=== PATIENT | female | born 1960 | race Two or more races ===

== ENCOUNTER 2018-05-04 13:49 | Emergency (ER) | payer MEDICAID ==
[~2018-05-04] VITALS: Ht 157.5 cm; Wt 65.8 kg
[2018-05-04 13:51] VITALS: BP 120/69
--- NOTE | 2018-05-04 14:02 | Emergency Room Report ---
History of Present Illness General Chief Complaint: Headache Source: Patient Present Illness HPI 57-year-old female with a history of brain tumors dx'd 2 months ago, non on chemo/XRT, gets care at [facility], [facility] from a [facility] for bitemporal headache for the past 5 hours with associated photophobia, denies fevers, vomiting, seizures, nausea, loss of appetite, and vague abdominal cramping. She says she takes meds but didn't bring them with her. She reports she gets these headaches ever since her diagnosis and has to get pain meds to make it better. Allergies: Coded Allergies: No Known Allergies (Unverified , 05/04/18) Patient History Past Medical History: see triage record Reviewed Nursing Documentation: PMH: Agreed; PSxH: Agreed Review of Systems All Other Systems: negative except mentioned in HPI Physical Exam Sp02 EP Interpretation: reviewed, normal General Appearance: no apparent distress, alert, non-toxic Head: normocephalic Eyes: bilateral eye normal inspection, bilateral eye PERRL, bilateral eye EOMI , bilateral eye other - partial L ptosis ENT: normal ENT inspection, hearing grossly normal, normal pharynx, no angioedema, normal voice, moist mucus membranes Neck: normal inspection, full range of motion, supple, no meningismus, supple/ symm/no masses Respiratory: chest non-tender, lungs clear, normal breath sounds, chest symmetrical, palpation of chest normal Cardiovascular #1: normal peripheral pulses, regular rate, rhythm Cardiovascular #2: 2+ radial (R), 2+ radial (L) Gastrointestinal: normal inspection, non tender, soft, no mass, no guarding, no rebound Rectal: deferred Genitourinary: normal inspection, no CVA tenderness Musculoskeletal: back normal, gait/station normal, normal range of motion, non- tender, no calf tenderness Neurologic: alert, responsive, pipe testing technician III-XII nml as tested, motor strength/tone normal, sensory intact, speech normal Psychiatric: judgement/insight normal, memory normal, mood/affect normal Skin: normal color, no rash, warm/dry, normal turgor Lymphatic: no adenopathy Medical Decision Making Diagnostic Impression: Primary Impression: Headache ER Course Patient with history of headache, brain tumors, as well as vague abdominal pain , abdominal exam unremarkable, neuro exam also generally unremarkable other than mild left partial ptosis. Will obtain basic labs, urinalysis, given IV Reglan, IV Benadryl, IV normal saline, obtaining head CT, and also try to obtain records from [facility], patient currently well-appearing, likely breakthrough headache, nausea, possibly hunger pains as her abdominal pain is very vague, and she does have a loss of appetite. Patient feels some improvement with above interventions, but still has headache , no abdominal pain, improved nausea, so will try to give a meal, also more headache meds with tylenol #3, iv zofran, and will dc back to fpc. Still awaiting medical records from [facility]. 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 Correlate with clinical history. Otherwise, negative for acute intracranial bleed or mass effect or other acute abnormality Reevaluation Time: 15:19 Status: improved Condition: Stable Scripts No Active Prescriptions or Reported Meds BAKARI BROWN M.D May 04, 2018 14:02
[2018-05-04] MEDS ORDERED: Metoclopramide 10mg/2ml Inj IVP ONE (14:15)
[2018-05-04] MEDS ORDERED: DiphenhydrAMINE 50mg/ml Inj IVP ONE (14:15)
[2018-05-04 14:31] LABS: BASOPHILS % (AUTO) 0.5 % (0.0-2.0); EOSINOPHILS % (AUTO) 1.9 % (0.0-3.0); HEMATOCRIT 39.3 % (37.0-47.0); HEMOGLOBIN 13.5 G/DL (12.0-16.0); LYMPHOCYTES % (AUTO) 24.9 % (20.0-45.0); MEAN CORPUSCULAR VOLUME 89 FL (80-99); MONOCYTES % (AUTO) 5.8 % (1.0-10.0); NEUTROPHILS % (AUTO) 66.9 % (45.0-75.0); PLATELET COUNT 243 K/UL (150-450); RED BLOOD COUNT 4.41 M/UL (4.20-5.40); RED CELL DISTRIBUTION WIDTH 10.3 % (11.6-14.8); WHITE BLOOD COUNT 5.9 K/UL (4.8-10.8)
[2018-05-04 14:35] LABS: ANION GAP 12 mmol/L (5-15); BLOOD UREA NITROGEN 13 mg/dL (7-18); CALCIUM 9.5 MG/DL (8.5-10.1); CARBON DIOXIDE 25 MMOL/L (21-32); CHLORIDE 105 MMOL/L (98-107); SODIUM 141 MMOL/L (136-145)
[2018-05-04 14:39] LABS: ALANINE AMINOTRANSFERASE 22 U/L (12-78); ALBUMIN/GLOBULIN RATIO 0.8 (1.0-2.7); ALKALINE PHOSPHATASE 70 U/L (46-116); ASPARTATE AMINO TRANSFERASE 20 U/L (15-37); BILIRUBIN,TOTAL 0.4 MG/DL (0.2-1.0)
[2018-05-04 14:52] LABS: APPEARANCE,URINE CLEAR; BILIRUBIN, URINE NEGATIVE (NEGATIVE); COLOR,URINE PALE YELLOW; GLUCOSE, URINE (UA) NEGATIVE (NEGATIVE); KETONES,URINE NEGATIVE (NEGATIVE); LEUKOCYTE ESTERASE ,URINE 1+ (NEGATIVE); NITRITE,URINE NEGATIVE (NEGATIVE); PH,URINE 6 (4.5-8.0); PROTEIN,URINE NEGATIVE (NEGATIVE); UROBILINOGEN,URINE NORMAL MG/DL (0.0-1.0)
--- NOTE | 2018-05-04 15:02 | Diagnostic Imaging Report ---
Indications: Bitemporal headache for past 5 hours with photophobia Technique: Spiral acquisitions obtained through the brain. Angled axial and coronal 5 x 5 mm slices were reconstructed. Total dose length product 1337.22 mGycm. CTDI vol(s) 70.38 mGy. Dose reduction achieved using automated exposure control Comparison: None. Findings: Round hyperattenuating focus at the roof of the third ventricle could represent a small colloid cyst. No associated hydrocephalus. No acute intracranial hemorrhage nor edema. No mass effect nor midline shift. Normal russell-white differentiation. There is slight focal effacement of the posterolateral right aspect of the fourth ventricle, without definite associated mass or edema. Otherwise, no acute hemorrhage or edema, mass effect, nor midline shift. Normal-sized ventricles and extra-axial CSF spaces. Normal russell-white differentiation. Visualized orbits and sinuses are unremarkable. The mastoids are underpneumatized bilaterally. 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 Correlate with clinical history. Otherwise, negative for acute intracranial bleed or mass effect or other acute abnormality The CT scanner at [facility] is accredited by the [employer] and the scans are performed using protocols designed to limit radiation exposure to as low as reasonably achievable to attain images of sufficient resolution adequate for diagnostic evaluation.
[2018-05-04] MEDS ORDERED: Tylenol #3 tab (300mg/30mg) ORAL ONE (15:30)
[2018-05-04 16:04] VITALS: BP 109/57
[2018-05-04] MEDS ORDERED: ACETAMINOPHEN-1 EAC1 ORAL (16:06)
[2018-05-04] MEDS ORDERED: ZOFRAN4 M3 ORAL (16:06)
[2018-05-04] MEDS ORDERED: REGLAN10 MG ORAL (16:07)
[2018-05-04 18:12] VITALS: BP 115/60
== END 2018-05-04 18:15 | disposition home or self-care (01) ==
LOC: EDBD 13:49 → EMR 14:18
DX: R51 Headache (principal); Z59.0 Homelessness; H02.402 Unspecified ptosis of left eyelid; Q04.6 Congenital cerebral cysts
CPT/HCPCS: 36415; 70450; 80053; 81003; 83690; 85025; 85610; 85730; 96361; 96374; 96375; 99284; J1200; J2405; J2765

== ENCOUNTER 2018-08-27 14:12 | Emergency (ER) | payer MEDICAID ==
[~2018-08-27] VITALS: Ht 154.9 cm; Wt 49.9 kg
[~2018-08-27 14:12] MED LIST: ACETAMINOPHEN-1 EAC1 ORAL; REGLAN10 MG ORAL; ZOFRAN4 M3 ORAL
--- NOTE | 2018-08-27 14:14 | NUR ---
ED Nurse Note: PT BROUGHT IN BY [facility] FROM HOME. PER EMS, PT HAD A WITNESSED SYNCOPAL EPISODE X 30 MINUTES AGO. PER STANDBYERS, NO HEAD TRAUMA. PT AOX3 - NOT ORIENTED TO TIME. PT C/O HEADACHE, 06/28. PT CALM AND COOPERATIVE AND ANSWERING QUESTIONS APPROPRIATELY. DR HERNANDEZ AT BEDSIDE FOR EVALUATION.
[2018-08-27 14:15] VITALS: BP 121/72
[2018-08-27] MEDS ORDERED: NKM (14:19)
--- NOTE | 2018-08-27 14:21 | Emergency Room Report ---
History of Present Illness General Chief Complaint: Syncope Source: Patient, EMS Present Illness HPI Patient is a 58-year-old female brought in by EMS after syncopal episode. Syncopal episode lasted less than 1 minute. Patient had reportedly been having some increased headache. Patient a prior history of brain tumor as well as seizure disorder but did not have any witnessed seizure episode. Patient was assisted to the floor by bystanders and had no head trauma. She reports having increased headache as well as vomiting. Patient reports having prior history of myocardial infarction x2 in the past. She reports having some continued headache. She states she has constant headaches and had last had imaging done approximate 1 year ago. Patient takes seizure medications and reportedly is taking Topamax. Allergies: Coded Allergies: No Known Allergies (Unverified , 05/04/18) Patient History Past Medical History: see triage record Last Menstrual Period: Unknown Reviewed Nursing Documentation: PMH: Agreed; PSxH: Agreed Review of Systems All Other Systems: negative except mentioned in HPI Physical Exam Vital Signs Date Time Temp Pulse Resp B/P (MAP) Pulse Ox O2 Delivery O2 Flow Rate FiO2 08/27/18 14:08 98.2 71 16 140/88 99 Room Air Sp02 EP Interpretation: reviewed, normal General Appearance: normal inspection, well appearing, no apparent distress, alert, GCS 15, Chronically Ill Head: atraumatic ENT: normal ENT inspection, hearing grossly normal, normal voice Neck: normal inspection, full range of motion, supple, no bony tend Respiratory: normal inspection, lungs clear, normal breath sounds, no respiratory distress, no retraction, no wheezing Cardiovascular #1: regular rate, rhythm, no edema Gastrointestinal: normal inspection, normal bowel sounds, non tender, soft, no guarding, no hernia Genitourinary: no CVA tenderness Musculoskeletal: normal inspection, back normal, normal range of motion Neurologic: normal inspection, alert, oriented x3, responsive, outreach rep III-XII nml as tested, speech normal Psychiatric: normal inspection, judgement/insight normal, mood/affect normal Skin: normal inspection, normal color, no rash Medical Decision Making Diagnostic Impression: Primary Impression: Syncope ER Course Patient presented for syncope. Differential diagnosis included but was not limited to arrhythmia, orthostatic hypotension, hypovolemia, vasovagal, anemia among others. Because of complexity of patient's case laboratory testing and imaging studies were ordered.Patient's laboratory testing was unremarkable. EKG showed normal sinus rhythm without acute ST or T wave changes. Patient's BNP was noted to be normal. Patient does not have any prior history of heart failure. Patient was offered admission however she declined and stated she wanted to leave the hospital despite any risks of worsening of condition or . Patient was discharged home to long term. Labs Test 08/27/18 14:40 08/27/18 17:59 White Blood Count 4.2 K/UL (4.8-10.8) Red Blood Count 4.64 M/UL (4.20-5.40) Hemoglobin 14.3 G/DL (12.0-16.0) Hematocrit 43.5 % (37.0-47.0) Mean Corpuscular Volume 94 FL (80-99) Mean Corpuscular Hemoglobin 30.8 PG (27.0-31.0) Mean Corpuscular Hemoglobin Concent 32.8 G/DL (32.0-36.0) Red Cell Distribution Width 11.5 % (11.6-14.8) Platelet Count 212 K/UL (150-450) Mean Platelet Volume 6.1 FL (6.5-10.1) Neutrophils (%) (Auto) 56.4 % (45.0-75.0) Lymphocytes (%) (Auto) 32.6 % (20.0-45.0) Monocytes (%) (Auto) 7.1 % (1.0-10.0) Eosinophils (%) (Auto) 2.8 % (0.0-3.0) Basophils (%) (Auto) 1.2 % (0.0-2.0) Prothrombin Time 10.5 SEC (9.30-11.50) Prothromb Time International Ratio 1.0 (0.9-1.1) Activated Partial Thromboplast Time 26 SEC (23-33) D-Dimer 0.66 mg/L FEU (0.00-0.49) Sodium Level 142 MMOL/L (136-145) Potassium Level 4.4 MMOL/L (3.5-5.1) Chloride Level 104 MMOL/L (98-107) Carbon Dioxide Level 28 MMOL/L (21-32) Anion Gap 10 mmol/L (5-15) Blood Urea Nitrogen 11 mg/dL (7-18) Creatinine 1.0 MG/DL (0.55-1.30) Estimat Glomerular Filtration Rate 57.4 mL/min (>60) Glucose Level 102 MG/DL (74-106) Calcium Level 9.6 MG/DL (8.5-10.1) Total Bilirubin 0.5 MG/DL (0.2-1.0) Aspartate Amino Transf (AST/SGOT) 27 U/L (15-37) Alanine Aminotransferase (ALT/SGPT) 35 U/L (12-78) Alkaline Phosphatase 60 U/L (46-116) Troponin I 0.000 ng/mL (0.000-0.056) Pro-B-Type Natriuretic Peptide 35 pg/mL (0-125) Total Protein 8.3 G/DL (6.4-8.2) Albumin 4.0 G/DL (3.4-5.0) Globulin 4.3 g/dL Albumin/Globulin Ratio 0.9 (1.0-2.7) Urine Color Yellow Urine Appearance Clear Urine pH 6 (4.5-8.0) Urine Specific [place] 1.015 (1.005-1.035) Urine Protein Negative (NEGATIVE) Urine Glucose (UA) Negative (NEGATIVE) Urine Ketones Negative (NEGATIVE) Urine Blood Negative (NEGATIVE) Urine Nitrite Negative (NEGATIVE) Urine Bilirubin Negative (NEGATIVE) Urine Urobilinogen Normal MG/DL (0.0-1.0) Urine Leukocyte Esterase 2+ (NEGATIVE) Urine RBC 0-2 /HPF (0 - 2) Urine WBC 2-4 /HPF (0 - 2) Urine Squamous Epithelial Cells Few /LPF (NONE/OCC) Urine Bacteria Occasional /HPF (NONE) Urine Mucus Moderate /LPF (NONE/OCC) EKG Diagnostic Results Rate: normal Rhythm: NSR ST Segments: other - septal t wave inversion, inferior q waves Last Vital Signs Date Time Temp Pulse Resp B/P (MAP) Pulse Ox O2 Delivery O2 Flow Rate FiO2 08/27/18 14:15 98.4 70 13 121/72 98 Room Air Status: improved Disposition: AGAINST MEDICAL ADVICE Condition: Unknown Jose J Grove MD Aug 27, 2018 14:21
--- NOTE | 2018-08-27 14:28 | NUR ---
ED Nurse Note: PT TO CT VIA NIMA
--- NOTE | 2018-08-27 14:41 | NUR ---
ED Nurse Note: PT BACK FROM CT VIA [facility]
--- NOTE | 2018-08-27 14:47 | Diagnostic Imaging Report ---
Indication: Syncopal episode, increased headache Technique: Continuous helical CT scanning of the head was performed without intravenous contrast material. Axial and coronal 5 mm sections were generated. Radiation dose was minimized using automated exposure control Dose: Total Dose Length Product - DLP 1312.[address] Dose Index - CTDIvol(s) 70.38 mGy. Comparison: none Findings: The ventricular system is normal in size and configuration. There is no shift of midline structures. No abnormal extra-axial fluid collections are noted. There is no evidence of intracerebral bleeding. No other abnormal high or low density areas are noted within the brain. A density at the roof of the third ventricle may reflect a colloid cyst. Normal russell-white differentiation. The mastoids are essentially nonpneumatized. The calvarium is intact. Visualized orbits and sinuses are unremarkable. Impression: Negative for acute intracranial bleed or mass effect Possible, cyst in usual location at the roof of the third ventricle The CT scanner at [facility] is accredited by the [employer] and the scans are performed using protocols designed to limit radiation exposure to as low as reasonably achievable to attain images of sufficient resolution adequate for diagnostic evaluation.
--- NOTE | 2018-08-27 14:49 | NUR ---
ED Nurse Note: PT INFORMED URINE SAMPLE IS NEEDED. PT STATES SHE DOES NOT WISH TO PROVIDE URINE SAMPLE. DR. HERNANDEZ NOTIFIED.
[2018-08-27 14:57] LABS: BASOPHILS % (AUTO) 1.2 % (0.0-2.0); EOSINOPHILS % (AUTO) 2.8 % (0.0-3.0); HEMATOCRIT 43.5 % (37.0-47.0); HEMOGLOBIN 14.3 G/DL (12.0-16.0); LYMPHOCYTES % (AUTO) 32.6 % (20.0-45.0); MEAN CORPUSCULAR VOLUME 94 FL (80-99); MONOCYTES % (AUTO) 7.1 % (1.0-10.0); NEUTROPHILS % (AUTO) 56.4 % (45.0-75.0); PLATELET COUNT 212 K/UL (150-450); RED BLOOD COUNT 4.64 M/UL (4.20-5.40); RED CELL DISTRIBUTION WIDTH 11.5 % (11.6-14.8); WHITE BLOOD COUNT 4.2 K/UL (4.8-10.8)
--- NOTE | 2018-08-27 15:00 | NUR ---
Note nathen in EDM - 08/27/18 at 1815 by [facility] ED Nurse Note: PT RESISTIVE TO CARE. СВЕТАЛНА LAWLER AT BEDSIDE FOR MONEGASQUE TRANSLATION. PT STATES SHE JUST WANTS TO GO HOME. PT DOES NOT WISH TO BE TREATED. DR. HERNANDEZ NOTIFIED.
[2018-08-27 15:01] LABS: ANION GAP 10 mmol/L (5-15); BLOOD UREA NITROGEN 11 mg/dL (7-18); CALCIUM 9.6 MG/DL (8.5-10.1); CARBON DIOXIDE 28 MMOL/L (21-32); CHLORIDE 104 MMOL/L (98-107); POTASSIUM 4.4 MMOL/L (3.5-5.1); SODIUM 142 MMOL/L (136-145)
[2018-08-27 15:14] LABS: ALANINE AMINOTRANSFERASE 35 U/L (12-78); ALBUMIN/GLOBULIN RATIO 0.9 (1.0-2.7); ALKALINE PHOSPHATASE 60 U/L (46-116); ASPARTATE AMINO TRANSFERASE 27 U/L (15-37); BILIRUBIN,TOTAL 0.5 MG/DL (0.2-1.0)
[2018-08-27] MEDS ORDERED: OMEPRAZOLE20 M2 ORAL (15:22)
[2018-08-27] MEDS ORDERED: FLUTICASONE PRO16 G1 NASAL (15:22)
[2018-08-27] MEDS ORDERED: TOPIRAMATE100 MG ORAL (15:22)
[2018-08-27] MEDS ORDERED: LORATADINE10 M2 PO (15:22)
--- NOTE | 2018-08-27 16:00 | NUR ---
ED Nurse Note: PT RESISTIVE TO CARE. BUCKY, EMT AT BEDSIDE FOR [place] TRANSLATION. PT STATES SHE JUST WANTS TO GO HOME. PT DOES NOT WISH TO BE TREATED. DR. HERNANDEZ NOTIFIED.
--- NOTE | 2018-08-27 16:10 | NUR ---
ED Nurse Note: ATTEMPTED TO CALL PT'S RESIDENCE FOR DISCHARGE TRANSPORTATION. NO ANSWER.
--- NOTE | 2018-08-27 16:55 | NUR ---
ED Nurse Note: 2 ATTEMPTS MADE TO REACH PT'S RESIDENCE. NO ANSWER.
--- NOTE | 2018-08-27 17:37 | NUR ---
ED Nurse Note: CALLED PT'S RESIDENCE FOR DISCHARGE TRANSPORTATION. SPOKE WITH STEPHANIE WHO STATES SHE WILL RETURN A CALL AFTER SPEAKING WITH HER CLIENT SPECIALIST.
--- NOTE | 2018-08-27 17:49 | NUR ---
ED Nurse Note: PT'S ADDRESS: [address] [place] [id number]. REQUEST MADE FOR TAXI VOUCHER FROM NURSING INTEGRATION SPECIALIST.
--- NOTE | 2018-08-27 18:00 | NUR ---
ED Nurse Note: PT REMAINS RESISTIVE TO CARE AND CONTINUES TO VERBALIZE THAT SHE WANTS TO GO HOME. DR HERNANDEZ AND PRIMARY RN AT BEDSIDE EXPLANING THE RISKS AND CONSEQUENCES OF LEAVING THE HOSPITAL AT THIS TIME INCLUDING WORSENING OF SYMPTOMS, PERSISTENT INFECTION, AND POSSIBLY . BENEFITS OF CONTINUED TREATMENT AND HOSPITALIZATION ALSO EXPLAINED TO PT. PT VERBALIZES UNDERSTANDING BUT STILL WISHES TO LEAVE AGAINST MEDICAL ADVICE. PT SIGNED AMA FORM - WITNESSED BY RN. TAXI VOUCHER PROVIDED FOR PT. AWAITING TAXI TO TRANSPORT PT HOME.
[2018-08-27 18:12] LABS: APPEARANCE,URINE CLEAR; BILIRUBIN, URINE NEGATIVE (NEGATIVE); GLUCOSE, URINE (UA) NEGATIVE (NEGATIVE); KETONES,URINE NEGATIVE (NEGATIVE); LEUKOCYTE ESTERASE ,URINE 2+ (NEGATIVE); NITRITE,URINE NEGATIVE (NEGATIVE); PH,URINE 6 (4.5-8.0); PROTEIN,URINE NEGATIVE (NEGATIVE); UROBILINOGEN,URINE NORMAL MG/DL (0.0-1.0)
[2018-08-27 18:15] LABS: COLOR,URINE YELLOW
--- NOTE | 2018-08-27 18:28 | NUR ---
ED Nurse Note: PT GIVEN TAXI VOUCHER PROVIDED [place] [facility] [place] SENT [place] ADDRESS PROVIDED BY STEPHANIE AT PT'S RESIDENCE. IV AND ID WRISTBAND REMOVED. PT WALKED OUT OF ER WITH STEADY GAIT AND ALL BELONGINGS.
[2018-08-27 18:31] VITALS: BP 124/78
--- NOTE | 2018-08-28 17:28 | Cardiology Report ---
APPROVED REPORT EKG Measurement Heart [id number] CO [id number] Normal sinus rhythm Inferior infarct, age undetermined Abnormal ECG
== END 2018-08-27 18:32 | disposition home or self-care (01) ==
LOC: EDBD 14:12 → EMR 14:45 → EDBD 14:45 → MERGE 14:45 → EMR 18:32
DX: R55 Syncope and collapse (principal)
CPT/HCPCS: 36415; 70450; 80053; 81001; 83880; 84484; 85025; 85379; 85610; 85730; 93005; 99284